=== PATIENT | male | born 1940 | race Caucasian/White ===

== ENCOUNTER 2020-12-19 20:26 | Emergency (ER) | payer MEDICARE ==
[~2020-12-19] VITALS: Ht 185.4 cm; Wt 97.1 kg
[2020-12-19 20:45] VITALS: BP 157/74
[2020-12-19] MEDS ORDERED: LIDOCAINE 2% JEL UROJET 10 ML MM ONE (20:49)
--- NOTE | 2020-12-19 21:00 | NUR ---
F/C INSERTED , DRAINING 700ML OF CLEAR YELLOW URINE . PT CHRISTELLE PROCEDURE WELL
[2020-12-19 22:53] LABS: BILIRUBIN,URINE Negative (NEGATIVE); COLOR,URINE YELLOW (YELLOW); LEUKOCYTE ESTERASE ,URINE Negative (NEGATIVE); NITRITE, URINE Negative (NEGATIVE); PROTEIN,URINE 30 mg/dl (NEGATIVE); UGLUCOSE Negative (NEGATIVE); UROBILINOGEN,URINE 0.2 EU/dL (0.2)
[2020-12-19 22:54] LABS: BACTERIA,URINE Rare /HPF (None Seen); RBC,URINE 21-50 /HPF (0-2); SQUAMOUS EPITHELIAL CELL,UR Few /HPF (None Seen); WBC,URINE NONE SEEN /HPF (0-3)
== END 2020-12-19 23:20 | disposition home or self-care (01) ==
LOC: ER 20:26
DX: R33.9 Retention of urine, unspecified (principal); I48.91 Unspecified atrial fibrillation; Z86.73 Personal history of transient ischemic attack (TIA), and cerebral infarction without residual deficits; Z88.0 Allergy status to penicillin; Z88.6 Allergy status to analgesic agent
CPT/HCPCS: 51702; 81001; 99284; J3490

== ENCOUNTER 2021-06-10 14:00 | Emergency (ER) | payer MEDICARE ==
[~2021-06-10] VITALS: Ht 182.9 cm; Wt 97.5 kg
--- NOTE | 2021-06-10 14:11 | NUR ---
TO ER BED 16, BIB SELF C/O "FOOD STUCK ON MY THROAT", DENIES SOB, BREATHING EVEN AND NON LABORED, AAOX3, AWAITING MD MIRAMONTES
--- NOTE | 2021-06-10 14:59 | NUR ---
TAKEN TO CT
--- NOTE | 2021-06-10 16:02 | NUR ---
Patient discharged to home in stable condition. Written and verbal after care instructions given. Patient verbalizes understanding of instruction. No acute distress noted
[2021-06-10 16:03] VITALS: BP 135/69
== END 2021-06-10 16:03 | disposition home or self-care (01) ==
LOC: ER 14:02
DX: R09.89 Other specified symptoms and signs involving the circulatory and respiratory systems (principal); I48.91 Unspecified atrial fibrillation; Z86.73 Personal history of transient ischemic attack (TIA), and cerebral infarction without residual deficits; Z88.0 Allergy status to penicillin; Z88.6 Allergy status to analgesic agent
CPT/HCPCS: 70490-TC

== ENCOUNTER 2023-11-18 00:21 | Emergency (ER) | payer MEDICARE ==
[~2023-11-18] VITALS: Ht 182.9 cm; Wt 90.7 kg
[2023-11-18 02:28] LABS: APPEARANCE,URINE SLIGHTLY CLOUDY (CLEAR); BILIRUBIN,URINE 1+ (NEGATIVE); BLOOD, URINE 3+ Ery/uL (NEGATIVE); COLOR,URINE DARK YELLOW (YELLOW); KETONES,URINE NEGATIVE (NEGATIVE); LEUKOCYTE ESTERASE ,URINE TRACE (NEGATIVE); NITRITE, URINE NEGATIVE (NEGATIVE); PROTEIN,URINE 2+ mg/dl (NEGATIVE); UGLUCOSE NEGATIVE (NEGATIVE); UROBILINOGEN,URINE 0.2 EU/dL (0.2)
[2023-11-18 02:57] VITALS: BP 114/73; TEMP 98.3; O2SAT 95
[2023-11-18 03:17] LABS: ADD URINE CULTURE NO; BACTERIA,URINE Rare /HPF (None Seen); RBC,URINE 21-50 /HPF (0-2); SQUAMOUS EPITHELIAL CELL,UR Few /HPF (None Seen)
== END 2023-11-18 02:57 | disposition home or self-care (01) ==
LOC: ER 00:23
DX: R33.9 Retention of urine, unspecified (principal); R10.30 Lower abdominal pain, unspecified; I48.91 Unspecified atrial fibrillation; Z86.73 Personal history of transient ischemic attack (TIA), and cerebral infarction without residual deficits; Z88.0 Allergy status to penicillin; Z88.8 Allergy status to other drugs, medicaments and biological substances; Z85.51 Personal history of malignant neoplasm of bladder
CPT/HCPCS: 81001; 87086-TC